=== PATIENT | female | born 1970 | race Caucasian/White ===

== ENCOUNTER 2022-05-09 17:53 | Emergency (ER) | payer MEDICARE, SELFPAY ==
[2022-05-09 17:57] VITALS: BP 151/64; PULSE 80; RESP 16; TEMP 36.8; O2SAT 99
[2022-05-09 18:22] LABS: Appearance Urine Clear (Clear); Bilirubin Urine Negative (Negative); Blood Urine 3+ (Negative); Color Urine Yellow (Yellow); Glucose Urine UA Negative (Negative); Ketones Urine Negative (Negative); Leukocyte Esterase Ur 3+ LEU/UL (Negative); Nitrate Urine Negative (Negative); Protein Urine Trace mg/dL (Negative); Urobilinogen Urine 0.2 mg/dL (<2.0)
[2022-05-09 18:30] LABS: Add Urine Microscopic? YES; Mucus Urine Rare /lpf; Squamous Epithelial Cell Urine Rare /hpf (Few); WBC Clumps Urine Present /HPF; WBC Urine 31-50 /hpf
--- NOTE | 2022-05-09 19:05 | ED.FEMALEGU ---
HPI - Female Genitourinary General Chief complaint: Urogenital-Female <Astrid Girard PA-C - Last Filed: 05/10/22 02:18> Stated complaint: hematuria and fever <Astrid Girard PA-C - Last Filed: 05/10/22 02:18> Time Seen by Provider: 05/09/22 18:41 <Astrid Girard PA-C - Last Filed: 05/10/22 02:18> History of Present Illness HPI Narrative: 52 year old female here for evaluation of hematuria, burning and urgency x 3 days. She was seen by her PCP upon symptom onset and was diagnosed with a UTI. She was prescribed cipro, but pharmacy did not have it in stock. She picked up the prescription today when it was ready, took one pill this AM, and notes she has no longer had hematuria. She presents due to concerns of low grade temperature at home of 99.6 prior to taking cipro, in addition to several small blood clots noted in her urine. Denies possibility of vaginal source of bleeding; she is s/p hysterectomy. No nausea, vomiting, flank pain. Has hx of frequent UTIs. <Astrid Girard PA-C - Last Filed: 05/10/22 02:18> Review of Systems Review of Systems: Gen.: Reports fever Eyes: Denies eye pain or visual change ENT: Denies congestion Respiratory: Denies shortness of breath or cough CV: Denies chest pain or palpitations GI: Denies abdominal pain nausea, emesis or diarrhea reports hematuria and burning. Musculoskeletal: Denies back pain or muscle pain Neuro: Denies numbness, tingling, weakness or focal weakness Skin: Denies rash Except as documented, all other systems reviewed and negative <EBEN Sawyer Last Filed: 05/10/22 02:18> Exam Narrative: APPEARANCE: Well appearing, no pain in distress, well-nourished. Head: Normocephalic and atraumatic. EYES: PERRLA/EOMI, conjunctivae clear NOSE: No nasal drainage EARS: External ear normal in appearance THROAT: Oropharynx is clear. Mucous membranes are moist. NECK: Supple. No adenopathy, no masses. RESPIRATORY: Airway patent, respirations nonlabored. Clear to auscultation bilaterally, no rales, rhonchi, wheezing. CARDIOVASCULAR: Regular rate and rhythm without murmurs, rubs, or gallops. ABDOMINAL: Normoactive bowel sounds. Soft, nontender, nondistended. No rebound tenderness or guarding. MUSCULOSKELETAL: No CVA tenderness. Extremities are warm and well-perfused. Moves all extremities well. No edema. NEURO: Normal speech. No focal neurologic deficits. SKIN: Skin is warm and dry. No rashes. PSYCHIATRIC: Normal affect/mood.. <Astrid Girard PA-C - Last Filed: 05/10/22 02:18> Course SQL REPORT DEVELOPER/PA Physician Supervision For this patient encounter, I reviewed the SQL REPORT DEVELOPER or PA documentation, treatment plan, and medical decision making <Pedro Banegas MD - Last Filed: 05/10/22 12:59> Vital Signs Vital signs: Vital Signs Temperature 98.2 F 05/09/22 17:57 Pulse Rate 80 05/09/22 17:57 Respiratory Rate 16 05/09/22 17:57 Blood Pressure 151/64 H 05/09/22 17:57 Pulse Oximetry 99 05/09/22 17:57 Oxygen Delivery Room Air 05/09/22 17:57 Temperature 98.2 F 05/09/22 17:57 Pulse Rate 80 05/09/22 17:57 Respiratory Rate 16 05/09/22 17:57 Blood Pressure 151/64 H 05/09/22 17:57 Pulse Oximetry 99 05/09/22 17:57 Oxygen Delivery Room Air 05/09/22 17:57 <Astrid Girard PA-C - Last Filed: 05/10/22 02:18> Vital Signs Temperature 98.2 F 05/09/22 17:57 Pulse Rate 80 05/09/22 17:57 Respiratory Rate 16 05/09/22 17:57 Blood Pressure 151/64 H 05/09/22 17:57 Pulse Oximetry 99 05/09/22 17:57 Oxygen Delivery Room Air 05/09/22 17:57 Temperature 98.2 F 05/09/22 17:57 Pulse Rate 80 05/09/22 17:57 Respiratory Rate 16 05/09/22 17:57 Blood Pressure 151/64 H 05/09/22 17:57 Pulse Oximetry 99 05/09/22 17:57 Oxygen Delivery Room Air 05/09/22 17:57 <Pedro Banegas MD - Last Filed: 05/10/22 12:59> MDM - Female Genitourinary MDM Narrative Me
[2022-05-09 19:28] LABS: Basophils Absolute Auto 0.1 K/mm3 (0.0-0.1); Basophils Percent Auto 0.5 % (0.2-1.2); Eosinophils Absolute Auto 0.4 K/mm3 (0-0.3); Eosinophils Percent Auto 2.8 % (0-4.4); Hematocrit 36.8 % (37.0-47.0); Hemoglobin 11.9 g/dL (12.0-15.0); Immature Granulocyte Absolute 0.03 K/mm3 (0.00-0.031); Immature Granulocyte Percent A 0.2 % (0-0.5); Lymphocytes Absolute Auto 3.55 K/mm3 (0.9-3.2); Lymphocytes Percent Auto 26.6 % (18.3-44.2); Mean Corpuscular HGB Conc 32.3 g/dl (32-36); Mean Corpuscular Hemoglobin 28.3 pg (26-34); Mean Corpuscular Volume 87.6 fl (80-100); Mean Platelet Volume 9.3 fl (7.4-10.4); Monocytes Absolute Auto 0.8 K/mm3 (0.1-0.6); Monocytes Percent Auto 5.8 % (2.6-8.5); Neutrophils Absolute Auto 8.5 K/mm3 (1.3-6.7); Neutrophils Percent Auto 64.1 % (45.5-73.1); Platelet Count Result 372 k/mm3 (150-375); Red Cell Distribution Width 14.4 % (11.5-14.5); White Blood Count 13.3 K/mm3 (4.5-10.0)
[2022-05-09 19:39] LABS: Alanine Aminotransferase 17 U/L (6-35); Albumin Level 4.3 g/dL (3.5-5.1); Alkaline Phosphatase 95 U/L (38-126); Anion Gap 9 mmol/L (8-16); Aspartate Amino Transferase 19 U/L (14-36); Bilirubin,Total 0.6 mg/dL (0.2-1.3); Blood Urea Nitrogen 12 mg/dL (7-17); Calcium 9.3 mg/dL (8.4-10.2); Carbon Dioxide 25 mmol/L (22-30); Chloride 105 mmol/L (98-107); Estimated CRCL calculation 82 ml/min; Estimated Glomerular Filt Rate 52; Glucose 240 mg/dL (65-110); Potassium 4.2 mmol/L (3.4-5.0); Sodium 139 mmol/L (137-145)
== END 2022-05-09 20:14 | disposition home or self-care (01) ==
PROVIDERS: Physician Assistant; Emergency Provider Emergency Medicine; PCP Family Medicine
DX: N39.0 Urinary tract infection, site not specified (principal)
CPT/HCPCS: 36415; 80053; 81001; 85025; 87086; 99283